=== PATIENT | female | born 1995 | race Caucasian/White ===

== ENCOUNTER → 2016-12-23 | Outpatient (CLI) | payer BC ==
--- NOTE | 2016-12-23 09:48 | US ---
Ultrasound of the Abdomen Limited History: R 10.11, are 11.0, R 53.83, right upper quadrant Abdominal pain. Nausea, fatigue. Comparison: CT July 2016. Findings: Gallbladder: No shadowing calculi, wall thickening, or pericholecystic fluid. Common bile duct is 5.4 mm in diameter which is borderline normal.. Liver: Homogeneous in echogenicity without definite focal lesions and measures 17 cm in length. Renal: Right kidney measures 10.4 x 4.2 x 4 cm without hydronephrosis. Pancreas: Homogeneous without peripancreatic fluid. Aorta: Visualized upper abdominal aorta demonstrates no aneurysm. Impression: 1. No cholelithiasis or biliary ductal dilation. 2. Borderline common bile duct at 5.4 mm. Please correlate with bilirubin. 3. No peripancreatic fluid, ascites, or hepatic lesions.
== END ==
LOC: FIMAGING 08:48
PROVIDERS: ATTEND Family Medicine
DX: R10.11 Right upper quadrant pain (principal); R11.0 Nausea; R53.83 Other fatigue

== ENCOUNTER 2017-01-26 23:21 | Emergency (ER) | payer BC ==
[2017-01-26 23:42] VITALS: TEMP 97.9
--- NOTE | 2017-01-27 00:08 | EDPHY ---
H & P Smoking Status: Light smoker Time Seen by Provider: 01/26/17 23:51 HPI/ROS: CHIEF COMPLAINT: withdrawal, anxiety HISTORY OF PRESENT ILLNESS: 21-year-old female presents to the emergency department by private vehicle with boyfriend and mother feeling extremely anxious. The patient has a history of heroin abuse. She has been sober from heroin since May of 2016. She has been using Subutex since May of 2016. She wants to get off of the Subutex. She has been detoxing in a program in [place] over the last 1 week. She got down to 2 mg. Her last dose was yesterday. She states today she felt extremely anxious. She tried taking her Xanax without relief. She denies pain in her chest. She denies difficulty breathing. No vomiting or diarrhea. No headache. No neck or back pain. No reported trauma. REVIEW OF SYSTEMS: Constitutional: No fever, no chills. Eyes: No double or blurry vision. ENT: No sore throat. Respiratory: No cough, no shortness of breath. Cardiac: No chest pain. Gastrointestinal: No abdominal pain, vomiting or diarrhea. Genitourinary: No dysuria. Musculoskeletal: No neck or back pain. Skin: No rashes. Neurological: No headache. (Jessie Bryan) Past Medical/Surgical History: Substance abuse (Jessie Bryan) Social History: Single (Jessie Bryan) Physical Exam: General Appearance: Alert, anxious, tremulous. Eyes: Pupils equal and round. Extraocular motions are all intact. ENT: Mouth: Mucous membranes dry. Respiratory: No wheezing, rhonchi, or rales, lungs are clear to auscultation. Cardiovascular: Regular rate and rhythm. Gastrointestinal: Abdomen is soft and nontender, no masses, no rebound or guarding, bowel sounds normal. Neurological: Alert and oriented x 3, cranial nerves II through XII grossly intact Skin: Warm and dry, no rashes. Musculoskeletal: Nontender to palpate along the cervical, thoracic or lumbar spine. Neck is supple. Extremities: Full range of motion and no peripheral edema. Psychiatric: Patient is oriented X 3, there is no agitation. (Jessie Bryan) Constitutional: Initial Vital Signs Temperature (C) 36.6 C 01/26/17 23:41 Heart Rate 93 01/26/17 23:41 Respiratory Rate 20 01/26/17 23:41 Blood Pressure 121/80 H 01/26/17 23:41 O2 Sat (%) 93 01/26/17 23:41 O2 Delivery Mode Room Air Allergies/Adverse Reactions: No Known Allergies Allergy (Verified 01/26/17 23:42) Home Medications: Medication Instructions Recorded Vivitrol 11/04/14 GABAPENTIN 12/30/14 Ondansetron HCl [Zofran] 4 mg PO Q4-6PRN PRN #10 tablet 02/01/16 Ondansetron Odt [Zofran Odt 4 mg 4 mg PO Q4 PRN #6 tab 07/22/16 (*)] Diazepam [Valium] 5 mg PO TIDPRN PRN #7 tab 01/27/17 Medical Decision Making ED Course/Re-evaluation: 21-year-old female presents to the emergency department stating that she is detoxing from Subutex. The patient is not suicidal homicidal. The patient feels extremely anxious. She is tremulous. I offered Ativan as well as IV normal saline although the patient initially declined. She is currently talking with her boyfriend and mother about taking this medication. She states "it is going to do anything." Patient refused the Ativan. She is requesting Valium. She states "I have been reading about Valium all day." Patient denies suicidal homicidal ideation. Her vital signs have remained stable throughout her stay in the emergency department. Heart rate is 70, 98% on room air, blood pressure 120/83. She declined an IV. She is not vomiting. She can't drink water. The patient was given 5 mg of Valium p. o. and a prescription to fill for more if needed. I also gave her information regarding the addiction recovery Center. Her mother and boyfriend were at bedside. (Jessie Bryan) Differential Diagnosis: Including but not limited to anxiety, acute withdrawal, electrolyte abnormality , intoxication (Jessei Bryan) Other Provider: PHYSICIAN DOCUMENTATION: The patient was evaluated and managed by the Physician Sight Effects Specialist. My co- signature indicates that I have reviewed this chart and I agree with the findings and plan of care as documented. I am the secondary supervising physician. (Anastasia Glover) - Data Points Medications Given: Discontinued Medications Diazepam (Valium) 5 mg PO EDNOW ONE Stop: 01/27/17 00:31 Last Admin: 01/27/17 00:36 Dose: 5 mg Departure - Departure Disposition: Home, Routine, Self-Care Clinical Impression: Substance abuse, Withdrawal complaint Condition: Good Instructions: Anxiety (ED) Additional Instructions: Valium as needed for symptoms of withdrawal. Referrals: Clover Wray MD [Primary Care Provider] - 1 day without fail Prescriptions: Diazepam [Valium] 5 mg PO TIDPRN PRN #7 tab PRN Reason: Anxiety
[2017-01-27] MEDS ORDERED: DIAZEPAM 5 MG TAB PO ONE (00:30)
[2017-01-27 00:42] VITALS: BP 120/83; PULSE 85; RESP 18; O2SAT 97
== END 2017-01-27 00:41 | disposition home or self-care (01) ==
DX: F19.239 Other psychoactive substance dependence with withdrawal, unspecified (principal)

== ENCOUNTER 2017-02-01 15:18 | Emergency (ER) | payer BC ==
[2017-02-01 15:31] VITALS: BP 118/85; PULSE 68; RESP 18; TEMP 97.7; O2SAT 98
[2017-02-01] MEDS ORDERED: NS 1,000 ML IV ONE (15:46)
--- NOTE | 2017-02-01 15:50 | EDPHY ---
H & P Time Seen by Provider: 02/01/17 15:47 HPI/ROS: HPI: 21-year-old female presents to emergency department with chief concern dehydration, vomiting, in need of prescription refill. Reports last dose of naloxone 1 week ago. In order to help with withdrawal, Dr. Jones prescribed clonazepam for her. She states she has run out of this medication and is seeking more. Denies fever, chills, headache, dizziness, seizures, abdominal pain. Reports intermittent nausea and vomiting over the past week. ROS:10 point review of systems is negative other than as stated in HPI Smoking Status: Light smoker Physical Exam: Vital signs stable General: Awake, alert, calm, cooperative. No acute distress. Head: Normalocephalic. Atraumatic. EENT: PERRLA. EOMI. No pallor or injection. Anicteric. Neck: Supple, nontender. No lymphadenopathy. Full range of motion. No meningismus. Respiratory: Breathing unlabored. Breath sounds equal bilaterally and clear to auscultation. No adventitious sounds. CV: Chest nontender, atraumatic. Heart rate regular. No murmur, distal pulses 2+ bilaterally. Brisk cap refill all extremities. GI: Abdomen soft, nontender. Bowel sounds normoactive and positive x4 quadrants. Neuro: Alert. Oriented x 3. Speech clear. Nonfocal cranial nerves throughout. Sensation intact all extremities. Skin: Skin warm, dry, intact. Moist mucous membranes. No rashes, abrasions, or lacerations. Skin turgor normal. Extremities: Full range of motion in all 4 extremities. Strength 5+ all extremities. Constitutional: Initial Vital Signs Temperature (C) 36.5 C 02/01/17 15:28 Heart Rate 68 02/01/17 15:28 Respiratory Rate 18 02/01/17 15:28 Blood Pressure 118/85 H 02/01/17 15:28 O2 Sat (%) 98 02/01/17 15:28 O2 Delivery Mode Room Air Allergies/Adverse Reactions: naloxone Allergy (Mild, Verified 02/01/17 15:31) n/v Home Medications: Medication Instructions Recorded Vivitrol 11/04/14 Scopolamine [Transderm-Scop] 1 each TD 02/01/17 clonIDINE [Catapres (*)] 0.1 mg PO 02/01/17 clonazePAM [klonoPIN (*)] 1 mg PO 02/01/17 Medical Decision Making ED Course/Re-evaluation: 21-year-old female with stable vital signs presents to ED with chief concern dehydration, vomiting, seeking prescription refill. Last dose of naloxone was 1 week ago. In order to help with withdrawal, Dr. Jones prescribed clonazepam. Patient states she has run out of this and is concerned for possible withdrawal seizures. PDMP search reveals that patient had #60, 1 mg clonazepam filled on 01/27 as well as #7 Valium filled on 01/27, both 5 days ago. I have declined to refill her benzos and I have recommended the arc. She declines the arc. While vital signs are stable, mucous membranes are moist, and skin turgor is normal, patient reports nausea and vomiting related to the withdrawal. I offered her 1 L normal saline and Zofran. Ultimately, she decides to leave the emergency department prior to administration of the normal saline and Zofran. This case was discussed with my colleague Dr. Peewee Esquivel. Differential Diagnosis: Differential diagnosis includes but is not limited to withdrawal, dehydration, drug-seeking Departure - Departure Disposition: Home, Routine, Self-Care Clinical Impression: Nausea & vomiting, Opiate withdrawal Condition: Good Instructions: Opioid Withdrawal (ED) Additional Instructions: Plan: Follow up with primary care Dr. Clover Wray tomorrow for recheck without fail --When you call to schedule appointment, please let the office know you are an "ER follow up" appointment" For worsening symptoms may return for IV fluids or nausea medicine, these were offered to you by you have D declined and decided to leave Your vital signs are entirely stable including a heart rate of 68, blood pressure 118/85 Referrals: Clover Wray MD [Primary Care Provider] - As per Instructions
== END 2017-02-01 15:55 | disposition home or self-care (01) ==
DX: R11.2 Nausea with vomiting, unspecified (principal); F11.23 Opioid dependence with withdrawal; F17.200 Nicotine dependence, unspecified, uncomplicated

== ENCOUNTER → 2017-03-17 | Outpatient (CLI) | payer BC | LOC: FIMAGING 08:51 | DX: R63.4 Abnormal weight loss (principal); R11.2 Nausea with vomiting, unspecified | CPT/HCPCS: 78264; A9541 ==

== ENCOUNTER 2017-03-28 19:21 | Emergency (ER) | payer BC ==
[2017-03-28 19:25] VITALS: TEMP 97.5
[2017-03-28] MEDS ORDERED: ONDANSETRON 4 MG/2 ML VIAL ONE (19:34)
[2017-03-28] MEDS ORDERED: ONDANSETRON 4 MG/2 ML VIAL IVP ONE ×2 (19:47→21:47)
[2017-03-28] MEDS ORDERED: NS 1,000 ML IV ONE (19:50)
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
[2017-03-28 20:54] VITALS: RESP 16
[2017-03-28 22:56] VITALS: BP 125/79; PULSE 99; O2SAT 98
== END 2017-03-28 22:30 | disposition home or self-care (01) ==
DX: F41.9 Anxiety disorder, unspecified (principal); F19.10 Other psychoactive substance abuse, uncomplicated; F17.200 Nicotine dependence, unspecified, uncomplicated
CPT/HCPCS: 96374; J2405

== ENCOUNTER 2017-04-21 16:33 | Emergency (ER) | payer BC ==
[2017-04-21 19:55] VITALS: BP 130/87; PULSE 86; RESP 20; O2SAT 96
== END 2017-04-21 17:15 | disposition left against medical advice (07) ==
DX: Z53.21 Procedure and treatment not carried out due to patient leaving prior to being seen by health care provider (principal)

== ENCOUNTER 2017-05-07 18:39 | Inpatient (IN) | payer BC ==
--- NOTE | 2017-05-07 18:54 | EDPHY ---
H & P Smoking Status: Light smoker Time Seen by Provider: 05/07/17 18:41 HPI/ROS: CHIEF COMPLAINT: Anxiety, suicidal ideation HISTORY OF PRESENT ILLNESS: This is a 22-year-old female brought in by a police for suicidal ideation. [place] [employer] states boyfriend had called with the concern that she had stated she wanted to kill herself, please also reports that wall she was in their custody she stated she wanted to just take a walk and take some pills and that she did have anything to live for. Patient states her best friend committed suicide 3-4 days ago and she has not had time to grieve she does not report feeling suicidal " I just do not have any support system to help me agrees, I do not feel like hurting myself, I have my sister's wedding to go to in July" denies any ingestion, or alcohol use REVIEW OF SYSTEMS: Constitutional: No fever, no chills. Fatigue Eyes: No discharge. Blurred vision ENT: No sore throat. Cardiovascular: No chest pain, no palpitations. Respiratory: No cough, no shortness of breath. Gastrointestinal: No abdominal pain, no vomiting. Genitourinary: No hematuria. Musculoskeletal: No back pain. Skin: No rashes. Neurological: No headache. (Shelli Sweet) Physical Exam: General Appearance: Alert, crying Eyes: Pupils equal and round no pallor or injection. ENT, Mouth: Mucous membranes moist. Respiratory: There are no retractions, lungs are clear to auscultation. Cardiovascular: Regular rate and rhythm. Gastrointestinal: Abdomen is soft and nontender, no masses, bowel sounds normal. Neurological: No focal deficits. Answering questions appropriately Skin: Warm and dry, no rashes. Musculoskeletal: Neck is supple nontender. Extremities: symmetrical, full range of motion. Psychiatric: Patient is oriented X 3, emotional crying (Shelli Sweet) Constitutional: Initial Vital Signs Temperature (C) 37 C 05/07/17 18:45 Heart Rate 98 05/07/17 18:45 Respiratory Rate 22 H 05/07/17 18:45 Blood Pressure 128/82 H 05/07/17 18:45 O2 Sat (%) 98 05/07/17 18:45 O2 Delivery Mode Room Air Allergies/Adverse Reactions: naloxone Allergy (Mild, Verified 05/07/17 18:42) n/v Home Medications: Medication Instructions Recorded clonazePAM [klonoPIN (*)] 1 mg PO 02/01/17 Ambien 04/21/17 Belsomra 04/21/17 Bcp 05/07/17 Minipress 05/07/17 Prozac 10 MG (*) 05/07/17 Medical Decision Making ED Course/Re-evaluation: Discussed ED plan of care: CBC, BMP, UA, urine drug screen,, psych evaluation 2030: Patient medically cleared waiting for psych evaluation. 2100: The discussed patient treatment plan with [facility], re-evaluating patient to see if patient needs to be admitted for psychiatric care or can go to the [facility] with resources 2130: Patient complaining of feeling anxiety and nausea. Meds ordered will re- evaluate 2340: [facility] has evaluated patient, waiting for placement 0130: Patient admitted to [address] [place] [address]. Stable not in any distress resting comfortably (Shelli Sweet) Differential Diagnosis: Other differential diagnosis considered but not limited to suicidal ideation, mike, and psychosis (Shelli Sweet) Other Provider: This patient was evaluated and managed by the nurse practitioner. I have reviewed the chart and agree with the findings and plan of care as documented. ( Radha Shannon) - Data Points Laboratory Results: Laboratory Results 05/07/17 19:43 05/07/17 19:43 05/07/17 05/07/17 05/07/17 19:43 19:43 19:43 WBC 7.23 10^3/uL 10^3/uL (3.80-9.50) RBC 4.88 10^6/uL 10^6/uL (4.18-5.33) Hgb 14.7 g/dL g/dL (12.6-16.3) Hct 42.7 % % (38.0-47.0) MCV 87.5 fL fL (81.5-99.8) MCH 30.1 pg pg (27.9-34.1) MCHC 34.4 g/dL g/dL (32.4-36.7) RDW 12.7 % % (11.5-15.2) Plt Count 251 10^3/uL 10^3/uL (150-400) MPV 9.8 fL fL (8.7-11.7) Neut % (Auto) 44.6 % % (39.3-74.2) Lymph % (Auto) 44.5 % % (15.0-45.0) Pleasants % (Auto) 7.1 % % (4.5-13.0) Eos % (Auto) 2.5 % % (0.6-7.6) Baso % (Auto) 1.0 % % (0.3-1.7) Nucleat RBC Rel Count 0.0 % % (0.0-0.2) Absolute Neuts (auto) 3.23 10^3/uL 10^3/uL (1.70-6.50) Absolute Lymphs (auto) 3.22 10^3/uL H 10^3/uL (1.00-3.00) Absolute Monos (auto) 0.51 10^3/uL 10^3/uL (0.30-0.80) Absolute Eos (auto) 0.18 10^3/uL 10^3/uL (0.03-0.40) Absolute Basos (auto) 0.07 10^3/uL 10^3/uL (0.02-0.10) Absolute Nucleated RBC 0.00 10^3/uL 10^3/uL (0-0.01) Immature Gran % 0.3 % % (0.0-1.1) Immature Gran # 0.02 10^3/uL 10^3/uL (0.00-0.10) Sodium 142 mEq/L mEq/L (134-144) Potassium 4.1 mEq/L mEq/L (3.5-5.2) Chloride 107 mEq/L mEq/L (97-110) Carbon Dioxide 21 mEq/l L mEq/l (22-31) Anion Gap 14 mEq/L mEq/L (8-16) BUN 8 mg/dL mg/dL (7-23) Creatinine 0.8 mg/dL mg/dL (0.6-1.0) Estimated GFR > 60 Glucose 74 mg/dL mg/dL (70-100) Calcium 9.1 mg/dL mg/dL (8.5-10.4) Beta HCG, Qual NEGATIVE Salicylates < 1.0 mg/dL L mg/dL (2.0-20.0) Urine Opiates Screen Urine Barbiturates Ur Phencyclidine Scrn Ur Amphetamine Screen U Benzodiazepines Scrn Urine Cocaine Screen U Marijuana (THC) Screen Ethyl Alcohol 62 mg/dL H mg/dL (0-10) 05/07/17 18:58 WBC RBC Hgb Hct MCV MCH MCHC RDW Plt Count MPV Neut % (Auto) Lymph % (Auto) Pleasants % (Auto) Eos % (Auto) Baso % (Auto) Nucleat RBC Rel Count Absolute Neuts (auto) Absolute Lymphs (auto) Absolute Monos (auto) Absolute Eos (auto) Absolute Basos (auto) Absolute Nucleated RBC Immature Gran % Immature Gran # Sodium Potassium Chloride Carbon Dioxide Anion Gap BUN Creatinine Estimated GFR Glucose Calcium Beta HCG, Qual Salicylates Urine Opiates Screen NON-NEGATIVE H (NEGATIVE) Urine Barbiturates NEGATIVE (NEGATIVE) Ur Phencyclidine Scrn NEGATIVE (NEGATIVE) Ur Amphetamine Screen NEGATIVE (NEGATIVE) U Benzodiazepines Scrn NON-NEGATIVE H (NEGATIVE) Urine Cocaine Screen NON-NEGATIVE H (NEGATIVE) U Marijuana (THC) Screen NON-NEGATIVE H (NEGATIVE) Ethyl Alcohol Medications Given: Discontinued Medications Clonazepam (Klonopin) 1 mg PO EDNOW ONE Stop: 05/07/17 19:48 Last Admin: 05/07/17 19:57 Dose: 1 mg Lorazepam (Ativan) 1 mg PO EDNOW ONE Stop: 05/07/17 22:00 Last Admin: 05/07/17 22:03 Dose: 1 mg Miscellaneous Medication (Non-Formulary) 0 ea PO EDNOW ONE Stop: 05/07/17 23:46 Last Admin: 05/08/17 00:01 Dose: 15 mg Nicotine (Nicoderm Cq) 21 mg TD EDNOW ONE Stop: 05/07/17 23:46 Last Admin: 05/08/17 00:02 Dose: 21 mg Ondansetron HCl (Zofran Odt) 4 mg PO EDNOW ONE Stop: 05/07/17 21:37 Last Admin: 05/07/17 21:41 Dose: Not Given Ondansetron HCl (Zofran Odt) 0 mg PO EDNOW ONE Stop: 05/07/17 23:46 Last Admin: 05/08/17 00:00 Dose: 8 mg Prazosin HCl (Minipress) 1 mg PO EDNOW ONE Stop: 05/07/17 23:46 Last Admin: 05/08/17 00:00 Dose: 1 mg Zolpidem Tartrate (Ambien) 0 mg PO EDNOW ONE Stop: 05/07/17 23:46 Last Admin: 05/07/17 23:59 Dose: 10 mg Departure - Departure Disposition: Other Psych, Not Nell Clinical Impression: Suicidal ideation Condition: Good Referrals: Clover Wray MD [Primary Care Provider] - As per Instructions
[2017-05-07] MEDS ORDERED: clonazePAM 1 MG TAB PO ONE (19:47)
[2017-05-07 19:52] LABS: % IMMATURE GRANULYOCYTES 0.3 % (0.0-1.1); ABSOLUTE IMMATURE GRANULOCYTES 0.02 10^3/uL (0.00-0.10); ADD DIFF? NO; ADD MORPH? NO; ADD SCAN? NO; ATYPICAL LYMPHOCYTE FLAG 10 (0-99); FRAGMENT RBC FLAG 0 (0-99); HEMATOCRIT 42.7 % (38.0-47.0); HEMOGLOBIN 14.7 g/dL (12.6-16.3); LEFT SHIFT FLG 0 (0-99); LIPEMIA HEMOLYSIS FLAG 90 (0-99); MEAN CELL HEMOGLOBIN 30.1 pg (27.9-34.1); MEAN CELL HEMOGLOBIN CONCENTR. 34.4 g/dL (32.4-36.7); MEAN CELL VOLUME 87.5 fL (81.5-99.8); MEAN PLATELET VOLUME 9.8 fL (8.7-11.7); PLATELET CLUMPS FLAG 0 (0-99); PLATELET COUNT 251 10^3/uL (150-400); RED BLOOD CELL COUNT 4.88 10^6/uL (4.18-5.33); RED CELL DISTRIBUTION WIDTH 12.7 % (11.5-15.2)
[2017-05-07 20:06] LABS: ANION GAP 14 mEq/L (8-16); CALCIUM 9.1 mg/dL (8.5-10.4); CARBON DIOXIDE 21 mEq/l (22-31); CHLORIDE 107 mEq/L (97-110); CREATININE 0.8 mg/dL (0.6-1.0); ETHANOL SERUM 62 mg/dL (0-10); GLOMERULAR FILTRATION RATE > 60; GLUCOSE 74 mg/dL (70-100); POTASSIUM 4.1 mEq/L (3.5-5.2); SALICYLATE < 1.0 mg/dL (2.0-20.0); SODIUM 142 mEq/L (134-144)
[2017-05-07] MEDS ORDERED: ACETAMINOPHEN 325 MG TAB ONE (20:58)
[2017-05-07] MEDS ORDERED: ONDANSETRON DISINTEGRATING 4 MG TAB PO ONE ×2 (21:36→23:44)
[2017-05-07] MEDS ORDERED: LORazepam 1 MG TAB PO ONE (21:59)
[2017-05-07] MEDS ORDERED: NICOTINE 21 MG/24 HR PATCH TD ONE ×2 (23:35→23:45)
[2017-05-07] MEDS ORDERED: ONDANSETRON DISINTEGRATING 4 MG TAB ONE (23:42)
[2017-05-07] MEDS ORDERED: ZOLPIDEM TARTRATE 10 MG TAB PO ONE (23:45)
[2017-05-07] MEDS ORDERED: SUVOREXANT 15 MG PO (23:45)
[2017-05-07] MEDS ORDERED: ONDANSETRON 8 MG TABLET PO ONE (23:45)
[2017-05-07] MEDS ORDERED: PRAZOSIN HCL 1 MG CAP PO ONE (23:45)
[2017-05-08] MEDS ORDERED: ACETAMINOPHEN 325 MG TAB PO PRN (02:45)
[2017-05-08] MEDS ORDERED: NICOTINE POLACRILEX 2 MG GUM B PRN (02:45)
[2017-05-08] MEDS ORDERED: MAG HYDROX/AL HYDROX/SIMETH 30 ML UDCUP PO PRN (02:45)
[2017-05-08] MEDS ORDERED: MAGNESIUM HYDROXIDE 30 ML UDCUP PO PRN (02:45)
[2017-05-08] MEDS ORDERED: OLANZapine DISINTEGR 10 MG TAB PO PRN (02:45)
[2017-05-08] MEDS: LORazepam 0.5 MG TAB PO PRN ×4 (03:28→20:36)
[2017-05-08] MEDS ORDERED: ONDANSETRON DISINTEGRATING 4 MG TAB PO PRN (08:07)
[2017-05-08] MEDS: NICOTINE 21 MG/24 HR PATCH TD SCH (08:56)
[2017-05-08] MEDS ORDERED: ONDANSETRON DISINTEGRATING 4 MG TAB PO ONE (09:15)
--- NOTE | 2017-05-08 09:17 | GCON ---
[f rep st] CONSULTATION DATE OF CONSULTATION: 05/08/2017 REFERRING PHYSICIAN: Sarita Siddiqui MD REASON FOR CONSULTATION: Medical management. HISTORY OF PRESENT ILLNESS: The patient is a 22-year-old female with a history of anxiety and polys ubstance abuse, brought in after her boyfriend called with concerns of patient having suicidal ideat ions. The patient has had these thoughts in the past. Five days ago, her friend committed suicide. At this time, she denies any suicide or homicide ideations. She does feel more anxious. She norm ally takes clonazepam t.i.d. but for the past 2 weeks has been taking 1 mg 6 times daily. Feels her heart racing. Denies vomiting and diarrhea. Has chronic nausea, which is relieved with Zofran. N o fever, chills, or sweats. No dysuria. REVIEW OF SYSTEMS: I completed a 10-point review of systems, negative except as noted in HPI. PAST MEDICAL HISTORY: Anxiety, polysubstance abuse, history of prior suicidal ideation. PAST SURGICAL HISTORY: None. FAMILY HISTORY: No cancer or CAD. SOCIAL HISTORY: Her parents live here in [place]. She is living with her boyfriend in [place]. She smokes marijuana regularly several times a day, a pack of cigarettes a day, 2-3 drinks 4 times a week. ALLERGIES: Naloxone. MEDICATIONS: Ambien 10 q.h.s., Belsomra 5 mg p.o. daily, prazosin 1 mg q.h.s., Zofran 8 mg as neede d, control, Prozac 10, and clonazepam 1 mg t.i.d. but has been taking it 6 times a day. PHYSICAL EXAM: VITAL SIGNS: Temperature 36.6, blood pressure 129/86, heart rates 80-90, respiratio ns 18, 98% on room air. GENERAL: The patient is lying in bed, awake from sleep but no acute distre ss. HEENT: PERRLA. EOMI. Oropharynx clear. CV: Regular rate and rhythm. No murmurs, gallops, or rubs. LUNGS: Clear to auscultation bilaterally. ABDOMEN: Mild left lower quadrant tenderness. No rebound, no guarding. Positive bowel sounds throughout. : No suprapubic tenderness. MUSCU LOSKELETAL: 5/5 upper and lower extremity strength. NEURO: 2-12 intact. PSYCH: Alert and orient ed x3. Anxious. LABORATORY DATA: WBC 7.2, hemoglobin 14, hematocrit 42, platelets 251. Sodium 142, potassium 4.1, chloride 107, carbon dioxide 21, creatinine 0.8, glucose 74, calcium 9.1. Beta-HCG negative. Urine tox positive for opioid, benzos, cocaine, and marijuana. ASSESSMENT AND PLAN: 1. Concern for suicidal ideation: This appears to be situational given her best friend's recent masterson icide. She currently denies any suicidal or homicidal ideations. She was admitted to [facility], treatment per that team. 2. Polysubstance abuse: Patient denies other drugs besides marijuana. However, she is positive fo r cocaine as well. She was counseled on cessation. 3. Alcohol abuse. Again, counseled on cessation. 4. Chronic nausea and vomiting: I did student counsellor patient that marijuana in excessive use is likely co ntributing. P.r.n. [employer]. 5. Tobacco abuse. Patch and Nicorette gum as needed. 6. Diet: Regular. 7. DVT prophylaxis: Low risk. Ambulatory. Thank you for this consultation. Please call with any questions. /[id number]/MODL
[2017-05-08] MEDS: FLUoxetine 20 MG CAP PO SCH (15:46)
[2017-05-08] MEDS: PRAZOSIN HCL 1 MG CAP PO SCH ×2 (15:46→21:50)
[2017-05-08] MEDS: NORETHINDRONE E ESTRADIOL IRON PO SCH ×2 (16:19→20:55)
[2017-05-08] MEDS: clonazePAM 1 MG TAB PO SCH ×2 (16:21→21:50)
[2017-05-08] MEDS ORDERED: BACITRACIN OINTMENT 1 PACKET TP ONE (19:21)
[2017-05-08] MEDS: ZOLPIDEM TARTRATE 5 MG TAB PO SCH (21:50)
--- NOTE | 2017-05-09 07:07 | SOAPPROG ---
SOAP Progress Note Assessment/Plan: Assessment: Plan: 05/09/17 DAY ' UPDATE/EXAM: Objective: Vital Signs Temp Pulse Resp BP Pulse Ox 36.4 C 75 14 105/56 L 97 05/09/17 06:39 05/09/17 06:39 05/09/17 06:39 05/09/17 06:39 05/09/17 06:39 ICD10 Worksheet Patient Problems: Problems Problem Status Onset Suicidal ideation Acute
[2017-05-09] MEDS: FLUoxetine 20 MG CAP PO SCH (08:09)
[2017-05-09] MEDS: NORETHINDRONE E ESTRADIOL IRON PO SCH ×3 (08:09→22:02)
[2017-05-09] MEDS: clonazePAM 1 MG TAB PO SCH ×3 (08:10→22:01)
[2017-05-09] MEDS: PRAZOSIN HCL 1 MG CAP PO SCH ×2 (08:10→22:01)
[2017-05-09] MEDS: LORazepam 0.5 MG TAB PO PRN ×3 (08:10→20:23)
[2017-05-09] MEDS: NICOTINE 21 MG/24 HR PATCH TD SCH (08:15)
[2017-05-09] MEDS: ONDANSETRON DISINTEGRATING 4 MG TAB PO PRN (08:15)
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
--- NOTE | 2017-05-09 13:51 | SOAPPROG ---
ERIK Progress Note Assessment/Plan: Assessment: Plan: 05/09/17 10:30 DAY 30' UPDATE/EXAM: Nursing reort pt slept 2 hours but is less regressed interactively this AM, c/w cares and meds, socially more appropriate/ on direct exam pt calm, cooperative, conversant; more accepting of extending inpt stay for restabilization, work-up, DC planning; gave more detain in disclosing nd expanding data base; knows I will Add her own supply of Belsomora 15 mg hs to ordered regimen; denies SI and moves easily into grief work focus about suicided friend ASSESSMENT/PLAN: early phase alliance and descriptive improvement/ hs meds added as above; CP to p/u grief focus as d/w Nursing Objective: Vital Signs Temp Pulse Resp BP Pulse Ox 36.4 C 75 14 105/56 L 97 05/09/17 06:39 05/09/17 06:39 05/09/17 06:39 05/09/17 06:39 05/09/17 06:39 ICD10 Worksheet Patient Problems: Problems Problem Status Onset Suicidal ideation Acute
[2017-05-09] MEDS ORDERED: SUVOREXANT 15 MG PO SCH (21:00)
[2017-05-09] MEDS: ZOLPIDEM TARTRATE 5 MG TAB PO SCH (22:01)
[2017-05-09] MEDS: Suvorexant [Belsomra] 15 MG PO SCH (22:01)
--- NOTE | 2017-05-10 06:32 | SOAPPROG ---
SOAP Progress Note Assessment/Plan: Assessment: Plan: 05/09/17 10:30 DAY 2 30' UPDATE/EXAM: Nursing report pt slept 2 hours but is less regressed interactively this AM, c/w cares and meds, socially more appropriate/ on direct exam pt calm, cooperative, conversant; more accepting of extending inpt stay for restabilization, work-up, DC planning; gave more detail in disclosing and expanding data base; knows I will add her own supply of Belsomora 15 mg hs to ordered regimen; denies SI and moves easily into grief work focus about suicided friend ASSESSMENT/PLAN: early phase alliance and descriptive improvement/ hs meds added as above; CP to p/u grief focus as d/w Nursing Objective: Vital Signs Temp Pulse Resp BP Pulse Ox 36.4 C 75 14 105/56 L 97 05/09/17 06:39 05/09/17 06:39 05/09/17 06:39 05/09/17 06:39 05/09/17 06:39 ICD10 Worksheet Patient Problems: Problems Problem Status Onset Suicidal ideation Acute
[2017-05-10] MEDS: clonazePAM 1 MG TAB PO SCH ×3 (08:05→22:12)
[2017-05-10] MEDS: NICOTINE 21 MG/24 HR PATCH TD SCH (08:05)
[2017-05-10] MEDS: FLUoxetine 20 MG CAP PO SCH (08:05)
[2017-05-10] MEDS: PRAZOSIN HCL 1 MG CAP PO SCH ×2 (08:06→22:39)
[2017-05-10] MEDS: ONDANSETRON DISINTEGRATING 4 MG TAB PO PRN ×2 (10:12→17:22)
[2017-05-10] MEDS: LORazepam 0.5 MG TAB PO PRN ×2 (12:18→20:05)
--- NOTE | 2017-05-10 13:26 | SOAPPROG ---
SOAP Progress Note Assessment/Plan: Assessment: Plan: 05/09/17 10:30 DAY 2 30' UPDATE/EXAM: Nursing report pt slept 2 hours but is less regressed interactively this AM, c/w cares and meds, socially more appropriate/ on direct exam pt calm, cooperative, conversant; more accepting of extending inpt stay for restabilization, work-up, DC planning; gave more detail in disclosing and expanding data base; knows I will add her own supply of Belsomora 15 mg hs to ordered regimen; denies SI and moves easily into grief work focus about suicided friend ASSESSMENT/PLAN: early phase alliance and descriptive improvement/ hs meds added as above; CP to p/u grief focus as d/w Nursing 05/10/17 08:30 UPDATE/EXAM: Nursing reports improved sleep / addition of Belasorma 15 mg hs and general improving trend as pt adheres to Care Plan accountability/ on direct pt able to focus on need for grief ffocus as well as discloses focus on trauma history is new and being developed with her psychotherapist in the weeks prior to cirisis of friend's leading to this admission; also able to focus on need to add sobriety treatment in structured fashion to her psychiatric plan including professional and self-help services; denies current SI and is less dysphoric ASSESSMENT/PLAN: lessening syndromal depression as pt addresses issues more directly/ no current change in meds; cC/B from psychiatrist in community pending ; early DC planning with particular focus on sobriety planning Objective: Vital Signs Temp Pulse Resp BP Pulse Ox 36.6 C 80 14 96/52 L 98 05/10/17 06:00 05/10/17 06:00 05/10/17 06:00 05/10/17 06:00 05/10/17 06:00 ICD10 Worksheet Patient Problems: Problems Problem Status Onset Suicidal ideation Acute
[2017-05-10] MEDS: NORETHINDRONE E ESTRADIOL IRON PO SCH (21:18)
[2017-05-10] MEDS: Suvorexant [Belsomra] 15 MG PO SCH (22:11)
[2017-05-10] MEDS: ZOLPIDEM TARTRATE 5 MG TAB PO SCH (22:39)
--- NOTE | 2017-05-11 06:46 | SOAPPROG ---
SOAP Progress Note Assessment/Plan: Assessment: Plan: 05/09/17 10:30 DAY UPDATE/EXAM: Nursing report pt slept 2 hours but is less regressed interactively this AM, c/w cares and meds, socially more appropriate/ on direct exam pt calm, cooperative, conversant; more accepting of extending inpt stay for restabilization, work-up, DC planning; gave more detail in disclosing and expanding data base; knows I will add her own supply of Belsomora 15 mg hs to ordered regimen; denies SI and moves easily into grief work focus about suicided friend ASSESSMENT/PLAN: early phase alliance and descriptive improvement/ hs meds added as above; CP to p/u grief focus as d/w Nursing 05/10/17 08:30 DAY UPDATE/EXAM: Nursing reports improved sleep / addition of Belasorma 15 mg hs and general improving trend as pt adheres to Care Plan accountability/ on direct pt able to focus on need for grief focus as well as discloses focus on trauma history is new and being developed with her psychotherapist in the weeks prior to cirisis of friend's leading to this admission; also able to focus on need to add sobriety treatment in structured fashion to her psychiatric plan including professional and self-help services; denies current SI and is less dysphoric ASSESSMENT/PLAN: lessening syndromal depression as pt addresses issues more directly/ no current change in meds; C/B from psychiatrist in community pending ; early DC planning with particular focus on sobriety planning. 05/11/17 DAY UPDATE/EXAM: Objective: Vital Signs Temp Pulse Resp BP Pulse Ox 36.6 C 67 12 98/56 L 98 05/11/17 06:00 05/11/17 06:00 05/11/17 06:00 05/11/17 06:00 05/11/17 06:00 ICD10 Worksheet Patient Problems: Problems Problem Status Onset Suicidal ideation Acute
[2017-05-11] MEDS: FLUoxetine 20 MG CAP PO SCH (08:22)
[2017-05-11] MEDS: clonazePAM 1 MG TAB PO SCH ×3 (08:22→22:13)
[2017-05-11] MEDS: PRAZOSIN HCL 1 MG CAP PO SCH ×2 (08:22→22:13)
[2017-05-11] MEDS: NICOTINE 21 MG/24 HR PATCH TD SCH (08:22)
[2017-05-11] MEDS: ONDANSETRON DISINTEGRATING 4 MG TAB PO PRN (10:36)
[2017-05-11] MEDS: LORazepam 0.5 MG TAB PO PRN ×2 (11:57→16:30)
--- NOTE | 2017-05-11 15:41 | SOAPPROG ---
SOAP Progress Note Assessment/Plan: Assessment: Plan: 05/09/17 10:30 DAY UPDATE/EXAM: Nursing report pt slept 2 hours but is less regressed interactively this AM, c/w cares and meds, socially more appropriate/ on direct exam pt calm, cooperative, conversant; more accepting of extending inpt stay for restabilization, work-up, DC planning; gave more detail in disclosing and expanding data base; knows I will add her own supply of Belsomora 15 mg hs to ordered regimen; denies SI and moves easily into grief work focus about suicided friend ASSESSMENT/PLAN: early phase alliance and descriptive improvement/ hs meds added as above; CP to p/u grief focus as d/w Nursing 05/10/17 08:30 DAY UPDATE/EXAM: Nursing reports improved sleep / addition of Belasorma 15 mg hs and general improving trend as pt adheres to Care Plan accountability/ on direct pt able to focus on need for grief focus as well as discloses focus on trauma history is new and being developed with her psychotherapist in the weeks prior to cirisis of friend's leading to this admission; also able to focus on need to add sobriety treatment in structured fashion to her psychiatric plan including professional and self-help services; denies current SI and is less dysphoric ASSESSMENT/PLAN: lessening syndromal depression as pt addresses issues more directly/ no current change in meds; C/B from psychiatrist in community pending ; early DC planning with particular focus on sobriety planning. 05/11/17 14:30 DAY UPDATE/EXAM: Nursing reports pt selpt well, observed as less depressed and fully engaging her Care Plan including milieu and group participation/ on direct exam pt is calm, cooperative, conversant; comfortable with signing in as Voluntary status after PM telephonic discussion with me yesterday; session focussed on grief work about suicided friend, sobriety rx plan for f/u post DC; DC timing set for PM tomorrow. Pt aware of my reviewing her case with community psychiatrist with second contact with him tomorrow. ASSESSMENT/PLAN: sustaining and building on gains; productive preparation for DC therapeutically tomorrow/ no change in meds or management plan; CP d/w [place] in Rounds Objective: Vital Signs Temp Pulse Resp BP Pulse Ox 36.6 C 67 12 98/56 L 98 05/11/17 06:00 05/11/17 06:00 05/11/17 06:00 05/11/17 06:00 05/11/17 06:00 ICD10 Worksheet Patient Problems: Problems Problem Status Onset Suicidal ideation Acute
[2017-05-11] MEDS: NORETHINDRONE E ESTRADIOL IRON PO SCH (21:03)
[2017-05-11] MEDS: Suvorexant [Belsomra] 15 MG PO SCH (21:42)
[2017-05-11] MEDS: ZOLPIDEM TARTRATE 5 MG TAB PO SCH (22:13)
[2017-05-12 06:25] VITALS: BP 101/58; PULSE 71; RESP 14; TEMP 97.5; O2SAT 97
--- NOTE | 2017-05-12 06:35 | SOAPPROG ---
SOAP Progress Note Assessment/Plan: Assessment: Plan: 05/09/17 10:30 DAY UPDATE/EXAM: Nursing report pt slept 2 hours but is less regressed interactively this AM, c/w cares and meds, socially more appropriate/ on direct exam pt calm, cooperative, conversant; more accepting of extending inpt stay for restabilization, work-up, DC planning; gave more detail in disclosing and expanding data base; knows I will add her own supply of Belsomora 15 mg hs to ordered regimen; denies SI and moves easily into grief work focus about suicided friend ASSESSMENT/PLAN: early phase alliance and descriptive improvement/ hs meds added as above; CP to p/u grief focus as d/w Nursing 05/10/17 08:30 DAY UPDATE/EXAM: Nursing reports improved sleep / addition of Belasorma 15 mg hs and general improving trend as pt adheres to Care Plan accountability/ on direct pt able to focus on need for grief focus as well as discloses focus on trauma history is new and being developed with her psychotherapist in the weeks prior to cirisis of friend's leading to this admission; also able to focus on need to add sobriety treatment in structured fashion to her psychiatric plan including professional and self-help services; denies current SI and is less dysphoric ASSESSMENT/PLAN: lessening syndromal depression as pt addresses issues more directly/ no current change in meds; C/B from psychiatrist in community pending ; early DC planning with particular focus on sobriety planning. 05/11/17 14:30 DAY UPDATE/EXAM: Nursing reports pt slept well, observed as less depressed and fully engaging her Care Plan including milieu and group participation/ on direct exam pt is calm, cooperative, conversant; comfortable with signing in as Voluntary status after PM telephonic discussion with me yesterday; session focussed on grief work about suicided friend, sobriety rx plan for f/u post DC; DC timing set for PM tomorrow. Pt aware of my reviewing her case with community psychiatrist with second contact with him tomorrow. ASSESSMENT/PLAN: sustaining and building on gains; productive preparation for DC therapeutically tomorrow/ no change in meds or management plan; CP d/w [place] in Rounds 05/12/17 11:00 Discharge Note DAY ' UPDATE/EXAM: Objective: Vital Signs Temp Pulse Resp BP Pulse Ox 36.4 C 71 14 101/58 L 97 05/12/17 06:00 05/12/17 06:00 05/12/17 06:00 05/12/17 06:00 05/12/17 06:00 ICD10 Worksheet Patient Problems: Problems Problem Status Onset Suicidal ideation Acute
[2017-05-12] MEDS: PRAZOSIN HCL 1 MG CAP PO SCH (08:54)
[2017-05-12] MEDS: NICOTINE 21 MG/24 HR PATCH TD SCH (08:54)
[2017-05-12] MEDS: clonazePAM 1 MG TAB PO SCH (08:54)
[2017-05-12] MEDS: FLUoxetine 20 MG CAP PO SCH (08:54)
[2017-05-12] MEDS ORDERED: SENNOSIDES 1 TAB PO SCH (09:30)
[2017-05-12] MEDS: ONDANSETRON DISINTEGRATING 4 MG TAB PO PRN (10:53)
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
== END 2017-05-12 14:40 | disposition home or self-care (01) | DRG 882 ==
LOC: BBEH 05-08 02:50
PROVIDERS: ADMIT Psychiatry & Neurology Psychiatry; ATTEND Psychiatry & Neurology Psychiatry
DX: F43.22 Adjustment disorder with anxiety (principal); R11.2 Nausea with vomiting, unspecified; F12.90 Cannabis use, unspecified, uncomplicated; F10.10 Alcohol abuse, uncomplicated; F17.210 Nicotine dependence, cigarettes, uncomplicated
CPT/HCPCS: 80305; G0480

== ENCOUNTER 2017-06-26 11:41 | Emergency (ER) | payer BC ==
--- NOTE | 2017-06-26 13:00 | EDPHY ---
H & P Stated Complaint: hx hip dysplasia.2 wks ago hip "popped out" increasing r leg numbness Time Seen by Provider: 06/26/17 13:00 - Personal History LMP (Females 10-55): 8-14 Days Ago Current Tetanus/Diphtheria Vaccine: Yes - Medical/Surgical History Hx Asthma: No Hx Chronic Respiratory Disease: No Hx Diabetes: No Hx Cardiac Disease: No Hx Renal Disease: No Hx Cirrhosis: No Hx Alcoholism: No Hx HIV/AIDS: No Hx Splenectomy or Spleen Trauma: No Other PMH: pmh- anxiety, IVDA. Psh-tonsillectomy, R wrist. gastroperesis cyclical vomiting - Social History Smoking Status: Heavy smoker Constitutional: Initial Vital Signs Temperature (C) 36.8 C 06/26/17 11:46 Heart Rate 104 H 06/26/17 11:46 Respiratory Rate 20 06/26/17 11:46 Blood Pressure 125/81 H 06/26/17 11:46 O2 Sat (%) 94 06/26/17 11:46 O2 Delivery Mode Room Air Allergies/Adverse Reactions: naloxone Allergy (Mild, Verified 06/26/17 11:45) n/v Home Medications: Medication Instructions Recorded FLUoxetine [Prozac 20 MG (*)] 20 mg PO DAILY 05/08/17 Norethindrone-E.estradiol-Iron [Lo 1 each PO DAILY 05/08/17 Loestrin Fe 1-10 Tablet] Ondansetron HCl [Zofran] 8 mg PO Q4 PRN 05/08/17 Prazosin HCl [Minipress 1mg (*)] 1 mg PO BID 05/08/17 Zolpidem Tartrate [Ambien 10 mg] 10 mg PO HS 05/08/17 Prazosin HCl [Minipress 1mg (*)] 1 mg PO BID #0 cap 05/12/17 Zolpidem Tartrate [Ambien 5MG (*)] 10 mg PO HS #0 tab 05/12/17 clonazePAM [klonoPIN (*)] 1 mg PO TID #45 tab 05/12/17 Ondansetron Odt [Zofran Odt 4 mg 4 mg PO Q4 PRN #10 tab 06/26/17 (RX)] oxyCODONE IR [Oxycodone Ir (*)] 5 - 10 mg PO Q6 PRN #20 tab 06/26/17 Medical Decision Making ED Course/Re-evaluation: CHIEF COMPLAINT: Right hip pain HISTORY OF PRESENT ILLNESS: 22-year-old female who has known hip dysplasia. She believes it is congenital her mother has the same problem and is needing hip replacements. This patient is having recurrent hip dislocations of her lower brule hip. Orthopedic surgeon saw her a couple days ago and ordered a hip MRI for this week however the patient feels like she dislocated 1 or 2 more times and the orthopedic surgeon recommended coming to the emergency department for an MRI to see if anything needs to be done more urgently. Patient denies any trauma but was recently on vacation and walking a tremendous amount where she feels like the hip got much worse over the last 2 weeks. She can't lift her leg due to pain but not due to weakness. She denies any back pain or radiculopathy type symptomatology. REVIEW OF SYSTEMS: A 10 point review of systems was performed and is negative with the exception of the elements mentioned in the history of present illness. PHYSICAL EXAM: HR, BP, O2 Sat, RR. Temp noted General Appearance: Alert, well hydrated, appropriate, and non-toxic appearing. Head: Atraumatic without scalp tenderness or obvious injury Eyes: Pupils equal, round, reactive to light and accommodation, EOMI, no trauma , no injection. Ears: Clear bilaterally, no perforation, normal landmarks Nose: Atraumatic, no rhinorrhea, clear. Throat: There is no erythema or exudates, no lesions, normal tonsils, mucus membranes moist. Neck: Supple, 2+ carotid upstroke, nontender, no lymphadenopathy. Respiratory: No retractions, no distress, no wheezes, and no accessory muscle use. Lungs are clear to auscultation bilaterally. Cardiovascular: Regular rate and rhythm, no murmurs, rubs, or gallops. Bilateral carotid, radial, dorsalis pedis, and posterior tibial pulses intact. Good capillary refill all extremities. Gastrointestinal: Abdomen is soft, nontender, non-distended, no masses, no rebound, no guarding, no peritoneal signs. Musculoskeletal: Right hip pain on any movement whatsoever. Otherwise, Normal active ROM of all extremities, atraumatic. Neurological: Alert, appropriate, and interactive. The patient has normal DTRs and non-focal cranial nerves, motor, sensory, and cerebellar exam. Skin: No rashes, good turgor, no nodules on palpation. Past medical history: Hip dysplasia, PTSD, depression, anxiety Past surgical history: Noncontributory Family history: Bilateral hip dysplasia her mother who is in the room Social history: Employed, significant other in the room, does not abuse tobacco drugs or alcohol, not DIAGNOSTICS/PROCEDURES/CRITICAL CARE TIME: Study: MRI of the: right hip with contrast Indication: known hip dysplasia with recurrent dislocations Results: MRI scan of the body parts was obtained. The results of the study are normal. The study was read by the radiologist, . I viewed the images myself on the PACS system. DIFFERENTIAL DIAGNOSIS: Includes but is not limited to: Hip dislocation, labral tear, arthritis, osteomyelitis MEDICAL DECISION MAKING: This patient is having exquisite hip pain after she believes that her hip is dislocated several times over the last 2 weeks. Orthopedic surgeon is in agreement has evaluated her and scheduled an MRI for this week. However, today the pain was so severe that the patient called that office again and recommended she come to the emergency department for an MRI. I will perform 1 based on our request. I have given the patient pain medicine anti nausea medicine. We will do with gadolinium to make sure we visualized the labrum well. 1727: MRI results conveyed to me by Dr. Carter as no acute process. Imaging looks the same as CT from 2 years ago. The MRI will be read by a specialist on Wednesday. I have advised her to follow up with her orthopedic doctor next week for reevaluation. It is possible that this event represents a lumbar radiculopathy but I feel this is less likely. 1730: Reassessed patient. Discussed results of MRI and the plan for discharge, which they are comfortable with. I answered all of their questions. - Data Points Medications Given: Discontinued Medications Hydromorphone HCl (Dilaudid) 1 mg IVP EDNOW ONE Stop: 06/26/17 13:24 Last Admin: 06/26/17 13:53 Dose: 1 mg Hydromorphone HCl (Dilaudid) 0.5 mg IVP EDNOW ONE Stop: 06/26/17 17:00 Last Admin: 06/26/17 17:06 Dose: 0.5 mg Sodium Chloride (Ns) 1,000 mls @ 0 mls/hr IV EDNOW ONE; Wide Open PRN Reason: Protocol Stop: 06/26/17 13:24 Last Admin: 06/26/17 13:53 Dose: 1,000 mls Ketorolac Tromethamine (Toradol) 30 mg IVP EDNOW ONE Stop: 06/26/17 13:24 Last Admin: 06/26/17 13:54 Dose: 30 mg Nicotine (Nicoderm Cq) 21 mg TD EDNOW ONE Stop: 06/26/17 15:01 Last Admin: 06/26/17 15:13 Dose: 21 mg Ondansetron HCl (Zofran) 4 mg IVP EDNOW ONE Stop: 06/26/17 13:24 Last Admin: 06/26/17 13:54 Dose: 4 mg Departure - Departure Disposition: Home, Routine, Self-Care Clinical Impression: Hip pain Qualifiers: Laterality: unspecified laterality Qualified Code(s): M25.559 - Pain in unspecified hip Condition: Good Instructions: Hip Pain (ED) Additional Instructions: Follow up with your orthopedic doctor next week for reevaluation. Take Zofran as prescribed when needed for nausea. Take pain medications as prescribed. Return for any serious worsening of condition. Referrals: Clover Wray MD [Primary Care Provider] - As per Instructions Prescriptions: Ondansetron Odt [Zofran Odt 4 mg (RX)] 4 mg PO Q4 PRN #10 tab PRN Reason: Nausea/Vomiting, Use 1st oxyCODONE IR [Oxycodone Ir (*)] 5 - 10 mg PO Q6 PRN #20 tab PRN Reason: Pain, Severe
[2017-06-26] MEDS ORDERED: ONDANSETRON 4 MG/2 ML VIAL IVP ONE (13:23)
[2017-06-26] MEDS ORDERED: HYDROmorphONE/DILAUDID 1 MG/ML SYR IVP ONE ×2 (13:23→16:59)
[2017-06-26] MEDS ORDERED: NS 1,000 ML IV ONE (13:23)
[2017-06-26] MEDS ORDERED: KETOROLAC 30 MG/1 ML SDV IVP ONE (13:23)
[2017-06-26] MEDS ORDERED: NICOTINE 21 MG/24 HR PATCH TD ONE (15:00)
[2017-06-26] MEDS ORDERED: GADOBUTROL 10 ML VIAL IVP ONE (15:50)
[2017-06-26 16:43] VITALS: RESP 16
[2017-06-26 17:55] VITALS: BP 134/92; PULSE 98; TEMP 97.7; O2SAT 96
== END 2017-06-26 17:56 | disposition home or self-care (01) ==
DX: M25.551 Pain in right hip (principal); F17.200 Nicotine dependence, unspecified, uncomplicated; E86.9 Volume depletion, unspecified
CPT/HCPCS: 96374; A9585; J1170; J1885; J2405

== ENCOUNTER 2018-03-01 19:54 | Emergency (ER) | payer OTHER ==
--- NOTE | 2018-03-01 20:22 | EDPHY ---
H & P Time Seen by Provider: 03/01/18 20:20 HPI/ROS: CHIEF COMPLAINT: Abdominal pain and vomiting HISTORY OF PRESENT ILLNESS: Patient is a history of gastric paresis cyclical vomiting as well as anxiety. Discharge summary dated 06/10/2017 personally reviewed includes a history of depression and PTSD along with substance abuse including THC cocaine and heroin. Patient developed symptoms today at 930 in the morning. Right upper quadrant abdominal pain radiates to her back associated with multiple episodes of vomiting and no diarrhea. She feels hot and sweaty. She says it feels"crampy" . Does not have urinary or vaginal symptoms. States symptoms are moderate to severe now and worse if she tries to eat or drink anything. REVIEW OF SYSTEMS: Eye: no change in vision ENT: no sore throat Cardiac: no chest pain or syncope Pulmonary: no cough or SOB Abdomen: HPI Musculoskeletal: no back pain Skin: no rash Neuro: no headache Constitutional: no fever : no urinary symptoms A comprehensive 10 point review of systems is otherwise negative aside from elements mentioned in the history of present illness. PAST MEDICAL HISTORY: As in HPI Social history: Here with her boyfriend, did have recent alcohol General Appearance: Alert and conversant, cooperative. Eyes: No scleral icterus. ENT, Mouth: Dry mucous membranes Respiratory: Normal respiratory effort, breath sounds equal, lungs are clear to auscultation. Cardiovascular: Regular rate and rhythm. Gastrointestinal: Right upper quadrant tenderness, no McBurney's point tenderness or lower abdominal rebound or guarding. Neurological: Alert, face symmetric, normal motor and sensory in extremities. Skin: Warm and dry, no rashes. Musculoskeletal: No peripheral edema. Psychiatric: Mildly anxious. Emergency Department course/MDM: Haldol 2.5 and Benadryl 25 mg IV, normal saline 2 L IV. Labs to include CBC chemistry LFT lipase and test. Urinalysis. Right upper quadrant ultrasound. 2149: Re-evaluated sleeping quietly, easily awakened and says she feels better. No vomiting. 2232: Re-evaluated, feels better, wants to go home, no further vomiting or abdominal pain. Smoking Status: Light smoker Constitutional: Initial Vital Signs Temperature (C) 36.3 C 03/01/18 19:59 Heart Rate 106 H 03/01/18 19:59 Respiratory Rate 20 03/01/18 19:59 Blood Pressure 108/89 H 03/01/18 19:59 O2 Sat (%) 96 03/01/18 19:59 O2 Delivery Mode Room Air Allergies/Adverse Reactions: naloxone Allergy (Mild, Verified 06/26/17 11:45) n/v Home Medications: Medication Instructions Recorded Zolpidem Tartrate [Ambien 5MG (*)] 10 mg PO HS #0 tab 05/12/17 clonazePAM [klonoPIN (*)] 1 mg PO TID #45 tab 05/12/17 Medical Decision Making - Diagnostics Imaging Results: Imaging Impressions Abdomen Ultrasound 03/01/18 20:27 Impression: Hepatomegaly with probable hepatic steatosis. Dr. Castro discussed these findings by telephone with LAVELL TRAN at 2208 hours on 03/01/2018. Normal right upper quadrant ultrasound discussed with Dr. Cass Philippe at 10: 10 p.m.. Imaging: Discussed imaging studies w/ will call clerk Radiologist - Data Points Laboratory Results: Laboratory Results 03/01/18 20:12 03/01/18 20:12 03/01/18 03/01/18 03/01/18 20:12 20:12 20:12 WBC 11.74 10^3/uL H 10^3/uL (3.80-9.50) RBC 5.72 10^6/uL H 10^6/uL (4.18-5.33) Hgb 16.2 g/dL g/dL (12.6-16.3) Hct 46.0 % % (38.0-47.0) MCV 80.4 fL L fL (81.5-99.8) MCH 28.3 pg pg (27.9-34.1) MCHC 35.2 g/dL g/dL (32.4-36.7) RDW 13.2 % % (11.5-15.2) Plt Count 318 10^3/uL 10^3/uL (150-400) MPV 9.8 fL fL (8.7-11.7) Neut % (Auto) 86.2 % H % (39.3-74.2) Lymph % (Auto) 8.7 % L % (15.0-45.0) [place] % (Auto) 4.4 % L % (4.5-13.0) Eos % (Auto) 0.2 % L % (0.6-7.6) Baso % (Auto) 0.2 % L % (0.3-1.7) Nucleat RBC Rel Count 0.0 % % (0.0-0.2) Absolute Neuts (auto) 10.12 10^3/uL H 10^3/uL (1.70-6.50) Absolute Lymphs (auto) 1.02 10^3/uL 10^3/uL (1.00-3.00) Absolute Monos (auto) 0.52 10^3/uL 10^3/uL (0.30-0.80) Absolute Eos (auto) 0.02 10^3/uL L 10^3/uL (0.03-0.40) Absolute Basos (auto) 0.02 10^3/uL 10^3/uL (0.02-0.10) Absolute Nucleated RBC 0.00 10^3/uL 10^3/uL (0-0.01) Immature Gran % 0.3 % % (0.0-1.1) Immature Gran # 0.04 10^3/uL 10^3/uL (0.00-0.10) Sodium 140 mEq/L mEq/L (135-145) Potassium 3.8 mEq/L mEq/L (3.5-5.2) Chloride 102 mEq/L mEq/L (97-110) Carbon Dioxide 21 mEq/l L mEq/l (22-31) Anion Gap 17 mEq/L H mEq/L (8-16) BUN 11 mg/dL mg/dL (7-23) Creatinine 0.7 mg/dL mg/dL (0.6-1.0) Estimated GFR > 60 Glucose 96 mg/dL mg/dL (70-100) Calcium 9.3 mg/dL mg/dL (8.5-10.4) Total Bilirubin 1.3 mg/dL mg/dL (0.1-1.4) Conjugated Bilirubin 0.3 mg/dL mg/dL (0.0-0.5) Unconjugated Bilirubin 1.0 mg/dL mg/dL (0.0-1.1) AST 37 IU/L IU/L (14-46) ALT 50 IU/L IU/L (9-52) Alkaline Phosphatase 118 IU/L IU/L (38-126) Total Protein 8.4 g/dL H g/dL (6.3-8.2) Albumin 4.9 g/dL g/dL (3.5-5.0) Lipase 108 IU/L IU/L (23-300) Beta HCG, Qual NEGATIVE Medications Given: Discontinued Medications Diphenhydramine HCl (Benadryl Injection) 25 mg IVP EDNOW ONE Stop: 03/01/18 20:28 Last Admin: 03/01/18 20:36 Dose: 25 mg Haloperidol Lactate (Haldol Injection) 2.5 mg IVP EDNOW ONE Stop: 03/01/18 20:28 Last Admin: 03/01/18 20:37 Dose: 2.5 mg Sodium Chloride (Ns) 1,000 mls @ 0 mls/hr IV EDNOW ONE; Wide Open PRN Reason: Protocol Stop: 03/01/18 20:28 Last Admin: 03/01/18 20:35 Dose: 1,000 mls Sodium Chloride (Ns) 1,000 mls @ 0 mls/hr IV EDNOW ONE; Wide Open PRN Reason: Protocol Stop: 03/01/18 20:28 Last Admin: 03/01/18 20:35 Dose: 1,000 mls Departure - Departure Disposition: Home, Routine, Self-Care Clinical Impression: Nausea & vomiting Qualifiers: Vomiting type: unspecified Vomiting Intractability: non-intractable Qualified Code(s): R11.2 - Nausea with vomiting, unspecified Abdominal pain Qualifiers: Abdominal location: right upper quadrant Qualified Code(s): R10.11 - Right upper quadrant pain Condition: Good Instructions: Acute Nausea and Vomiting (ED), Acute Abdominal Pain (ED) Referrals: Magi Tomlinson MD [Medical Doctor] - As per Instructions
[2018-03-01] MEDS ORDERED: HALOPERIDOL LACT 5 MG/ML INJ IVP ONE (20:27)
[2018-03-01] MEDS ORDERED: NS 1,000 ML IV ONE ×2 (20:27)
[2018-03-01 20:33] LABS: PLATELET COUNT 318 10^3/uL (150-400)
[2018-03-01 22:41] VITALS: BP 133/64; PULSE 73; RESP 16; TEMP 97.9; O2SAT 96
== END 2018-03-01 22:39 | disposition home or self-care (01) ==
DX: R10.11 Right upper quadrant pain (principal); R11.2 Nausea with vomiting, unspecified; F17.200 Nicotine dependence, unspecified, uncomplicated; E86.9 Volume depletion, unspecified
CPT/HCPCS: 96374; J1200; J1630

== ENCOUNTER 2018-08-10 21:43 | Emergency (ER) | payer OTHER ==
--- NOTE | 2018-08-10 22:33 | EDPHY ---
H & P Stated Complaint: reaction to versed, sx today released at 1430 Source: Patient - Personal History LMP (Females 10-55): Now Current Tetanus/Diphtheria Vaccine: Yes - Medical/Surgical History Hx Asthma: No Hx Chronic Respiratory Disease: No Hx Diabetes: No Hx Cardiac Disease: No Hx Renal Disease: No Hx Cirrhosis: No Hx Alcoholism: No Hx HIV/AIDS: No Hx Splenectomy or Spleen Trauma: No Other PMH: pmh- anxiety, IVDA. Psh-tonsillectomy, R wrist. gastroperesis cyclical vomiting. L ankle sx 08/10/18 - Social History Smoking Status: Light smoker Time Seen by Provider: 08/10/18 22:33 HPI/ROS: HPI CHIEF COMPLAINT: Anxiety, possible reaction to medication HISTORY OF PRESENT ILLNESS: This is a 23-year-old female, she has a history of anxiety and PTSD, she presents emergency room stating that she is reacting to a medication she had today and thinks she is having a "paradoxical reaction to Versed". Patient states that she had left ankle surgery today and came out of surgery screaming and very anxious. She presents to the emergency room stating that she feels very anxious feels panicky, feels like she is having anxiety/ panic attack. Past Medical History: PTSD and anxiety, Previous Psychiatric Hospitization, IVDU, Narcotic Use. Past Surgical History: Left ankle surgery Social History: Denies daily use drugs alcohol tobacco Family History: Noncontributory ROS REVIEW OF SYSTEMS: 10 Systems were reviewed and negative with the exception of the elements mentioned in the history of present illness. Exam Constitutional anxious, nontoxic appearing, triage nursing summary reviewed, vital signs reviewed, awake/alert. Eyes normal conjunctivae and sclera, EOMI, PERRLA. HENT normal inspection, atraumatic, moist mucus membranes, no epistaxis, neck supple/ no meningismus, no raccoon eyes. Respiratory clear to auscultation bilaterally, normal breath sounds, no respiratory distress, no wheezing. Cardiovascular rate normal, regular rhythm, no murmur, no edema, distal pulses normal. Gastrointestinal soft, non-tender, no rebound, no guarding, normal bowel sounds, no distension, no pulsatile mass. Genitourinary no CVA tenderness. Musculoskeletal left lower extremity in splint, no midline vertebral tenderness , full range of motion, no calf swelling, no tenderness of extremities, no meningismus, good pulses, neurovascularly intact. Skin pink, warm, & dry, no rash, skin atraumatic. Neurologic awake, alert and oriented x 3, AAOx3, moves all 4 extremities equally, motor intact, sensory intact, CN II-XII intact, normal cerebellar, normal vision, normal speech. Psychiatric anxious, crying, hyperventilating Heme/Lymph/Immune no lymphadenopathy. Differential Diagnosis: Includes but is not limited to in a particular order acute anxiety attack, panic attack, electrolyte disturbance, dehydration, medication adverse reaction Medical Decision Making: Plan for this patient IV establishment IV fluid bolus , 50 mg IV Benadryl, 1 mg IV Ativan check basic electrolytes and re-evaluate. Re-evaluation: 1218AM: Re-examination at this time this patient is still very anxious despite 50 of Benadryl IV and 1 mg IV Ativan. Will re-dose with 1 mg Ativan and another 25 mg of Benadryl. Additionally 2nd L fluid. Will re-evaluate. Of note mom is at bedside requesting Haldol as "she is googling" medications to give her for her anxiety. However I declined to give her Haldol as she is on Zofran and can prolong her QT. Will re-evaluate after 2nd dose of Ativan. Additionally the boyfriend at bedside has given her a dose of Seroquel and 4 doses of Klonopin prior to arriving to the emergency room. 0112AM: Patient re-evaluated she is much more calm now after 2nd dose of Ativan. She is resting comfortably. However she is due for pain medicine to her left ankle pain recent surgery. I have ordered her 50 mcg IV fentanyl. 0232: Patient re-evaluated this time current heart rate 86, blood pressure 126/ 89, pulse ox 94% room air. Patient is resting comfortably. 0405: Plan was for discharge however the patient became very I rate and angry that she was being discharged. She is stating that we did not do anything for her despite giving her a large amount of medications here for anxiety including Ativan, Benadryl, fluids, Zyprexa, she also received fentanyl for pain due to recent left ankle surgery. Patient is now telling me as well as staff Mima MEADOWS, that she feels too unstable to go home. She would like to speak to mental health. She states she does not feel safe going home. She states she feels too anxious and is too "mentally unstable to go home" 0405: Patient is now screaming at medical staff, somewhat threatening. A due to her erratic behavior, her not feeling comfortable going home, states she has to mentally unstable like to speak to mental health I have placed her on M1 hold. She is here in the emergency room now acting rather aggressive, yelling, crying, anxious. Patient screaming and yelling. Patient extremely anxious. Patient is acting rather psychotic. Plan will be for IM Zyprexa 5 more mg. M1 hold. And will need mental health evaluation. 0436: Patient requesting pain medicine for her left foot/ankle. She was prescribed Percocet 5 mg for pain control at home. Will give her dose of this as well as ibuprofen. 0650: Patient signed over to Dr. Nicole at 7am. Patient medically cleared. Pending [facility]. (Zain Kaur) Constitutional: Initial Vital Signs Temperature (C) 36.6 C 08/10/18 21:50 Heart Rate 108 H 08/10/18 21:50 Respiratory Rate 28 H 08/10/18 21:50 Blood Pressure 105/69 08/10/18 21:50 O2 Sat (%) 92 08/10/18 21:50 O2 Delivery Mode Room Air Allergies/Adverse Reactions: naloxone Allergy (Mild, Verified 06/26/17 11:45) n/v Home Medications: Medication Instructions Recorded Zolpidem Tartrate [Ambien 5MG (*)] 10 mg PO HS #0 tab 05/12/17 clonazePAM [klonoPIN (*)] 1 mg PO TID #45 tab 05/12/17 Oxycodone HCl 08/10/18 Zofran 08/10/18 Medical Decision Making Other Provider: 0950: Patient has been evaluated by Daniel from [facility]. He has lifted the M1 hold and feels patient is safe for discharge. (Jose Luis Nicole) - Data Points Laboratory Results: Laboratory Results 08/10/18 22:15 08/10/18 22:15 08/11/18 08/10/18 08/10/18 05:15 22:15 22:15 WBC RBC Hgb Hct MCV MCH MCHC RDW Plt Count MPV Neut % (Auto) Lymph % (Auto) [place] % (Auto) Eos % (Auto) Baso % (Auto) Nucleat RBC Rel Count Absolute Neuts (auto) Absolute Lymphs (auto) Absolute Monos (auto) Absolute Eos (auto) Absolute Basos (auto) Absolute Nucleated RBC Immature Gran % Immature Gran # Sodium 141 mEq/L mEq/L (135-145) Potassium 4.1 mEq/L mEq/L (3.3-5.0) Chloride 107 mEq/L mEq/L (97-110) Carbon Dioxide 20 mEq/l L mEq/l (22-31) Anion Gap 14 mEq/L mEq/L (8-16) BUN 8 mg/dL mg/dL (7-23) Creatinine 0.6 mg/dL mg/dL (0.6-1.0) Estimated GFR > 60 Glucose 122 mg/dL H mg/dL (70-100) Calcium 9.7 mg/dL mg/dL (8.5-10.4) Urine Opiates Screen NEGATIVE (NEGATIVE) Urine Barbiturates NEGATIVE (NEGATIVE) Ur Phencyclidine Scrn NEGATIVE (NEGATIVE) Ur Amphetamine Screen NEGATIVE (NEGATIVE) U Benzodiazepines Scrn NEGATIVE (NEGATIVE) Urine Cocaine Screen NEGATIVE (NEGATIVE) U Marijuana (THC) Screen NON-NEGATIVE H (NEGATIVE) Ethyl Alcohol < 10 mg/dL mg/dL (0-10) 08/10/18 22:15 WBC 12.64 10^3/uL H 10^3/uL (3.80-9.50) RBC 5.38 10^6/uL H 10^6/uL (4.18-5.33) Hgb 15.3 g/dL g/dL (12.6-16.3) Hct 44.0 % % (38.0-47.0) MCV 81.8 fL fL (81.5-99.8) MCH 28.4 pg pg (27.9-34.1) MCHC 34.8 g/dL g/dL (32.4-36.7) RDW 14.1 % % (11.5-15.2) Plt Count 295 10^3/uL 10^3/uL (150-400) MPV 10.5 fL fL (8.7-11.7) Neut % (Auto) 84.5 % H % (39.3-74.2) Lymph % (Auto) 9.7 % L % (15.0-45.0) Camden % (Auto) 5.1 % % (4.5-13.0) Eos % (Auto) 0.0 % L % (0.6-7.6) Baso % (Auto) 0.2 % L % (0.3-1.7) Nucleat RBC Rel Count 0.0 % % (0.0-0.2) Absolute Neuts (auto) 10.69 10^3/uL H 10^3/uL (1.70-6.50) Absolute Lymphs (auto) 1.23 10^3/uL 10^3/uL (1.00-3.00) Absolute Monos (auto) 0.64 10^3/uL 10^3/uL (0.30-0.80) Absolute Eos (auto) 0.00 10^3/uL L 10^3/uL (0.03-0.40) Absolute Basos (auto) 0.02 10^3/uL 10^3/uL (0.02-0.10) Absolute Nucleated RBC 0.00 10^3/uL 10^3/uL (0-0.01) Immature Gran % 0.5 % % (0.0-1.1) Immature Gran # 0.06 10^3/uL 10^3/uL (0.00-0.10) Sodium Potassium Chloride Carbon Dioxide Anion Gap BUN Creatinine Estimated GFR Glucose Calcium Urine Opiates Screen Urine Barbiturates Ur Phencyclidine Scrn Ur Amphetamine Screen U Benzodiazepines Scrn Urine Cocaine Screen U Marijuana (THC) Screen Ethyl Alcohol Medications Given: Discontinued Medications Diphenhydramine HCl (Benadryl Injection) 50 mg IVP EDNOW ONE Stop: 08/10/18 22:38 Last Admin: 08/10/18 22:46 Dose: 50 mg Diphenhydramine HCl (Benadryl Injection) 25 mg IVP EDNOW ONE Stop: 08/11/18 00:17 Last Admin: 08/11/18 00:24 Dose: 25 mg Fentanyl (Sublimaze) 50 mcg IVP EDNOW ONE Stop: 08/11/18 01:11 Last Admin: 08/11/18 01:21 Dose: 50 mcg Sodium Chloride (Ns) 1,000 mls @ 0 mls/hr IV EDNOW ONE; Wide Open PRN Reason: Protocol Stop: 08/10/18 22:38 Last Admin: 08/10/18 22:44 Dose: 1,000 mls Sodium Chloride (Ns) 1,000 mls @ 0 mls/hr IV ONCE ONE PRN Reason: Wide Open Stop: 08/11/18 00:17 Last Admin: 08/11/18 00:22 Dose: 1,000 mls Ibuprofen (Motrin) 800 mg PO EDNOW ONE Stop: 08/11/18 04:36 Last Admin: 08/11/18 04:38 Dose: 800 mg Lorazepam (Ativan Injection) 1 mg IVP EDNOW ONE Stop: 08/10/18 22:38 Last Admin: 08/10/18 22:45 Dose: 1 mg Lorazepam (Ativan Injection) 1 mg IVP EDNOW ONE Stop: 08/10/18 23:23 Last Admin: 08/11/18 00:30 Dose: Not Given Lorazepam (Ativan Injection) 1 mg IVP EDNOW ONE Stop: 08/11/18 00:17 Last Admin: 08/11/18 00:23 Dose: 1 mg Nicotine (Nicoderm Cq) 21 mg TD EDNOW ONE Stop: 08/11/18 04:07 Last Admin: 08/11/18 04:08 Dose: 21 mg Olanzapine (Zyprexa Injection) 5 mg IM EDNOW ONE Stop: 08/11/18 01:39 Last Admin: 08/11/18 01:44 Dose: 5 mg Olanzapine (Zyprexa Injection) 5 mg IM EDNOW ONE Stop: 08/11/18 04:15 Last Admin: 08/11/18 04:20 Dose: 5 mg Oxycodone HCl (Oxycodone Ir) 5 mg PO EDNOW ONE Stop: 08/11/18 08:19 Last Admin: 08/11/18 08:22 Dose: 5 mg Oxycodone/Acetaminophen (Percocet 5/325) 1 tab PO EDNOW ONE Stop: 08/11/18 04:36 Last Admin: 08/11/18 04:38 Dose: 1 tab Departure - Departure Disposition: Home, Routine, Self-Care Clinical Impression: Anxiety, Psychosis Condition: Good Instructions: Anxiety (ED) Referrals: Clover Wray MD [Primary Care Provider] - As per Instructions
[2018-08-10] MEDS ORDERED: NS 1,000 ML IV ONE (22:37)
[2018-08-10] MEDS ORDERED: LORazepam 2 MG/ML INJ IVP ONE ×2 (22:37→23:22)
[2018-08-10 22:43] LABS: PLATELET COUNT 295 10^3/uL (150-400)
[2018-08-11] MEDS ORDERED: NS 1,000 ML IV ONE (00:16)
[2018-08-11] MEDS ORDERED: LORazepam 2 MG/ML INJ IVP ONE (00:16)
[2018-08-11] MEDS ORDERED: fentaNYL 100 MCG/2 ML INJ IVP ONE (01:10)
[2018-08-11] MEDS ORDERED: OLANZapine 10 MG/2 ML VIAL IM ONE ×2 (01:38→04:14)
[2018-08-11] MEDS ORDERED: NICOTINE 21 MG/24 HR PATCH TD ONE ×2 (04:05→04:06)
[2018-08-11] MEDS ORDERED: OXYCODONE/APAP 5/325 TAB PO ONE (04:35)
[2018-08-11] MEDS ORDERED: IBUPROFEN 800 MG TAB PO ONE (04:35)
[2018-08-11] MEDS ORDERED: oxyCODONE IR 5 MG TAB PO ONE (08:18)
[2018-08-11 10:19] VITALS: BP 156/85
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
--- NOTE | 2018-08-11 14:15 | ASMTTCLDSP ---
TLC Discharge Disposition Disposition: Answers: Discharge If Answers: Yes DISCHARGED: Patient/family given suicide hotline info & SAMHSA brochure? Disposition Notes: Notes: Pt stated commitment or ability to keep self safe, denied thoughts of self harm or harm to others. Pt expressed a desire to f/u with her scheduled therapy appointment on Wednesday at noon with Chantal Spears and schedule next appointment with psychiatrist, Jose Luis Francis MD. Pt was given local hotline information and SAMHSA brochure After an Attempt and encouraged to follow up with therapist appointment on Wednesday. Discharge Concerns/Recommendations: Notes: In consultation with [facility] ED physician, Jose Luis Nicole MD, Dr. Nicole concurred that pt does not appear to meet 27-65 criteria requiring psychiatric hospitalization as pt does not appear to be an imminent risk of harm to self/others/gravely disabled due to a mental illness condition. Dr. Nicole provided verbal order read back vacating M1 hold at 0950 hrs. Was patient given the Answers: Not applicable Inpatient Behavioral Health Prohibited Belongings List while in the ED? Psychiatrist vacating M1 Jose Luis Nicole MD Hold: Date and time M1 hold 08/11/2018 09:50 AM vacated (time format is hh:mm): Type of Hold: Answers: M1/72-hour Hold Hold initiated by: Answers: ED Physician Date Signed: 08/11/2018 01:53 PM Electronically Signed By:Daniel Piña
== END 2018-08-11 10:13 | disposition home or self-care (01) ==
DX: F41.9 Anxiety disorder, unspecified (principal); F29 Unspecified psychosis not due to a substance or known physiological condition; E86.9 Volume depletion, unspecified
CPT/HCPCS: 80305; 96374; G0480; J1200; J2060; J3010

== ENCOUNTER 2018-08-13 21:28 | Emergency (ER) | payer OTHER ==
[2018-08-13] MEDS ORDERED: NS 1,000 ML IV ONE ×2 (21:49→23:46)
--- NOTE | 2018-08-13 21:49 | EDPHY ---
H & P Stated Complaint: Dizziness Time Seen by Provider: 08/13/18 21:48 HPI/ROS: HPI CHIEF COMPLAINT: [ ] HISTORY OF PRESENT ILLNESS: [Need 4: Location, Duration, Severity, Quality, Context, Timing Modifying Factors, Associated S&S] Past Medical History: Past Surgical History: Social History: Family History: ROS REVIEW OF SYSTEMS: 10 Systems were reviewed and negative with the exception of the elements mentioned in the history of present illness. Exam Constitutional triage nursing summary reviewed, vital signs reviewed, awake/ alert. Eyes normal conjunctivae and sclera, EOMI, PERRLA. HENT normal inspection, atraumatic, moist mucus membranes, no epistaxis, neck supple/ no meningismus, no raccoon eyes. Respiratory clear to auscultation bilaterally, normal breath sounds, no respiratory distress, no wheezing. Cardiovascular rate normal, regular rhythm, no murmur, no edema, distal pulses normal. Gastrointestinal soft, non-tender, no rebound, no guarding, normal bowel sounds, no distension, no pulsatile mass. Genitourinary no CVA tenderness. Musculoskeletal no midline vertebral tenderness, full range of motion, no calf swelling, no tenderness of extremities, no meningismus, good pulses, neurovascularly intact. Skin pink, warm, & dry, no rash, skin atraumatic. Neurologic awake, alert and oriented x 3, AAOx3, moves all 4 extremities equally, motor intact, sensory intact, CN II-XII intact, normal cerebellar, normal vision, normal speech. Psychiatric normal mood/affect. Heme/Lymph/Immune no lymphadenopathy. Differential Diagnosis: Medical Decision Making: Re-evaluation: Source: Patient - Personal History LMP (Females 10-55): Now Current Tetanus Diphtheria and Acellular Pertussis (TDAP): Yes - Medical/Surgical History Hx Asthma: No Hx Chronic Respiratory Disease: No Hx Diabetes: No Hx Cardiac Disease: No Hx Renal Disease: No Hx Cirrhosis: No Hx Alcoholism: No Hx HIV/AIDS: No Hx Splenectomy or Spleen Trauma: No Other PMH: pmh- anxiety, IVDA. Psh-tonsillectomy, R wrist. gastroperesis cyclical vomiting. L ankle sx 08/10/18 - Social History Smoking Status: Light smoker Constitutional: Initial Vital Signs Temperature (C) 36.8 C 08/13/18 21:30 Heart Rate 110 H 08/13/18 21:30 Respiratory Rate 20 08/13/18 21:30 Blood Pressure 121/93 H 08/13/18 21:30 O2 Sat (%) 98 08/13/18 21:30 O2 Delivery Mode Room Air Allergies/Adverse Reactions: naloxone Allergy (Mild, Verified 06/26/17 11:45) n/v Home Medications: Medication Instructions Recorded Zolpidem Tartrate [Ambien 5MG (*)] 10 mg PO HS #0 tab 05/12/17 clonazePAM [klonoPIN (*)] 1 mg PO TID #45 tab 05/12/17 Oxycodone HCl 08/10/18 Zofran 08/10/18 Departure - Departure Condition: Good Referrals: NONE *PRIMARY CARE P,. [Primary Care Provider] - As per Instructions
[2018-08-13 22:01] LABS: PLATELET COUNT 234 10^3/uL (150-400)
[2018-08-13] MEDS ORDERED: PROMETHAZINE HCL 25 MG/ML INJ IVP ONE ×2 (22:08→22:35)
[2018-08-13] MEDS ORDERED: PROMETHAZINE HCL 25 MG/ML INJ ONE (22:33)
--- NOTE | 2018-08-13 22:33 | EDPHY ---
General - History Smoking Status: Light smoker Time Seen by Provider: 08/13/18 21:48 Narrative: CHIEF COMPLAINT: Dizzy, confusion, dehydrated, nausea vomiting HISTORY OF PRESENT ILLNESS: Patient presents by private vehicle with boyfriend and his parents at bedside. She complains of feeling dizzy, confused, and dehydrated because she started vomiting at 8:00 p.m. Tonight. The dizziness confusion has persisted since anesthesia Wednesday for left ankle surgery. This has been intermittently present. She has had no altered mentation. No seizure-like activity per family. She has no neck pain or stiffness, no headache no fever. She does have multiple episodes of vomiting this evening around 8:00 p.m.. This started after feeling nauseated earlier without vomiting. She took some CBD oils by mouth and vomited following this. She has had several episodes of vomiting and "can't keep anything down."She states she tolerated her pain medication at 3:00 p.m. But could not tolerate the evening dose. She has no chest pain. No shortness of breath. Her surgical site pain has been tolerable with prescribed OxyContin. No other associated complaints or modifying factors REVIEW OF SYSTEMS: 10 systems were reviewed and negative with the exception of the elements mentioned in the history of present illness. PCP: Dr. Wray SPECIALISTS: Dr. Villavicencio, Orthopedics Dr. Francis, Psychiatry PAST MEDICAL HISTORY: Anxiety, previous IV drug abuse, gastroparesis comes vomiting, orthopedic injure PAST SURGICAL HISTORY: Left ankle open reduction internal fixation, right wrist surgery remotely SOCIAL HISTORY: Lives independently with her significant other. FAMILY HISTORY: Noncontributory EXAMINATION: General Appearance: Alert, no distress Head: normocephalic, atraumatic Eyes: Pupils equal and round, no conjunctival pallor or injection ENT, Mouth: Mucous membranes moist. EOM symmetric without any nystagmus or dysconjugate gaze. Neck: Normal inspection. Midline trachea. No meningismus or rigidity. Painless range in all planes. Respiratory: Lungs are clear to auscultation Cardiovascular: Tachycardic rate. Regular rhythm. No murmur. Gastrointestinal: Abdomen is soft and nontender Neurological: GCS 15. Alert to person, place and time. Normal finger-to- nose. Excellent strength of the upper extremities right lower extremity. Normal mentation. Skin: Warm and dry, no rash Extremities: Left lower extremity in posterior splint with stirrup. I did not remove this. She has excellent perfusion left toes that are easily visualized. Symmetric sensation of the toes bilaterally. No tenderness of the right lower extremity the upper extremities. Psychiatric: Mood and affect normal DIFFERENTIAL DIAGNOSES: Including but not limited to cervical vomiting, THC gastritis, post anesthesia nausea vomiting, vertigo, dehydration, near-syncope MDM: 10:05 p.m. Nausea, vomiting clinical dehydration. The patient is postop day 3 from a left ankle open reduction internal fixation. She is also here 2 days ago for possible to anesthesia. She was ultimately placed on an M1 hold on Wednesday night and then cleared mental evaluation. I do feel that part of her difficulty today's due to multiple medications over the few days with an adequate p.o. Intake. She has a normal, nonfocal neuro examination with no altered mentation. Her vital signs are within normal limits. I have ordered IV fluid. Laboratory studies were ordered prior to my examination. 11:20 p.m. CBC and Chemistry are within normal limits. She received 1.5 L IV fluid. She received promethazine 12.5 and 2 separate dosing is. Her vital signs remained within normal limits. She is awake alert no acute distress. Continue with IV fluid resuscitation. I have also ordered IV Pepcid as I suspect there may be component of cervical vomiting/gastritis. 11:40 p.m. Patient re-evaluated. She still feeling nauseated but she has no active vomiting. Abdominal exam remains benign. No chest pain. She is mildly tachycardic, and EKG obtained reveals normal intervals. 12:20 a.m. Patient re-evaluated. She has received p.o. OxyContin without any vomiting. She is receiving her 3rd L IV fluid at this time. After further discussion, the patient is more forthcoming and admits that she has ingested multiple marijuana edibles yesterday and into the evening. Both she and her significant other at bedside feel this is contributed. She is likely cyclical vomiting on top of previous sedating medications, pain medications and acute pain to her ankle. I do feel we have a reason for her symptoms as well as for mild tachycardia. I will continue IV fluid resuscitation re-evaluate. 1:20 a.m. Patient re-evaluated. She is feeling much better. She remains mildly at times , which I think is mainly due to pain as we have not yet controlled with pain adequately. I have ordered a dose of morphine and will finish 3rd L IV fluid 2:00 a.m. Patient re-evaluated. She is feeling better. She is less nauseated. We discussed discharge home and strict cessation from THC for 6 weeks. We discussed resuming her OxyContin prescribed by her surgeon. We discussed nausea medications that have been provided from us. We discussed ED precautions including return of vomiting, intractable pain, chest pain, shortness of breath or altered mentation. At this time she is awake and alert. She is in no acute distress. She has not vomited during her stay here. She has no altered mentation or cephalopathy. No meningismus or rigidity. She is discharged in stable condition in her boyfriend will drive her home. EKG interpretation: Dr. Kaur SUPERVISION: Patient was independently examined, but I discussed the case with my secondary supervising physician Dr. Kaur head CONSULTATION: None (Cliff Brantley) - Objective Vital Signs: Initial Vital Signs Temperature (C) 98.2 F 08/13/18 21:30 Heart Rate 110 H 08/13/18 21:30 Respiratory Rate 20 08/13/18 21:30 Blood Pressure 121/93 H 08/13/18 21:30 O2 Sat (%) 98 08/13/18 21:30 O2 Delivery Mode Room Air O2 (L/minute) 2 Allergies/Adverse Reactions: naloxone Allergy (Mild, Verified 06/26/17 11:45) n/v Home Medications: Medication Instructions Recorded Zolpidem Tartrate [Ambien 5MG (*)] 10 mg PO HS #0 tab 05/12/17 clonazePAM [klonoPIN (*)] 1 mg PO TID #45 tab 05/12/17 Oxycodone HCl 08/10/18 Zofran 08/10/18 Laboratory Results: Laboratory Results 08/13/18 21:47 08/13/18 21:47 Medications Given: Discontinued Medications Famotidine (Pepcid) 20 mg IVP EDNOW ONE Stop: 08/13/18 23:17 Last Admin: 08/14/18 00:04 Dose: 20 mg Sodium Chloride (Ns) 1,000 mls @ 0 mls/hr IV EDNOW ONE; Wide Open PRN Reason: Protocol Stop: 08/13/18 21:50 Last Admin: 08/13/18 21:54 Dose: 1,000 mls Sodium Chloride (Ns) 1,000 mls @ 0 mls/hr IV EDNOW ONE; Wide Open PRN Reason: Protocol Stop: 08/13/18 22:35 Last Admin: 08/14/18 00:04 Dose: 1,000 mls Sodium Chloride (Ns) 1,000 mls @ 0 mls/hr IV EDNOW ONE; Wide Open PRN Reason: Protocol Stop: 08/13/18 23:47 Last Admin: 08/14/18 00:38 Dose: 1,000 mls Morphine Sulfate (Morphine) 4 mg IVP EDNOW ONE Stop: 08/13/18 22:10 Last Admin: 08/13/18 22:14 Dose: 4 mg Morphine Sulfate (Morphine) 4 mg IVP EDNOW ONE Stop: 08/14/18 01:22 Last Admin: 08/14/18 00:15 Dose: 4 mg Ondansetron HCl (Zofran Odt 4 Mg Prepack#2) 1 btl TAKEHOME EDNOW ONE Stop: 08/14/18 01:09 Last Admin: 08/14/18 01:43 Dose: 1 btl Oxycodone HCl (Oxycontin) 10 mg PO ONCE ONE Stop: 08/13/18 22:37 Last Admin: 08/14/18 00:04 Dose: 10 mg Promethazine HCl (Phenergan) 12.5 mg IVP ONCE ONE Stop: 08/13/18 22:09 Last Admin: 08/13/18 22:13 Dose: 12.5 mg Promethazine HCl (Phenergan) 12.5 mg IVP ONCE ONE Stop: 08/13/18 22:36 Last Admin: 08/13/18 22:38 Dose: 12.5 mg Promethazine HCl (Phenergan 25 Mg Prepack #4) 1 btl TAKEHOME EDNOW ONE Stop: 08/14/18 01:09 Last Admin: 08/14/18 01:43 Dose: 1 btl Departure - Departure Disposition: Home, Routine, Self-Care Clinical Impression: Cannabinoid hyperemesis syndrome, Volume depletion, Postoperative pain of extremity Gastritis Qualifiers: Gastritis type: other gastritis Chronicity: acute Gastritis bleeding: without bleeding Qualified Code(s): K29.00 - Acute gastritis without bleeding Condition: Good Instructions: Promethazine (By mouth), Ondansetron (By mouth), Gastritis (ED), Pain Management (ED), Cyclic Vomiting Syndrome (ED) Additional Instructions: 1. Nausea medications as provided and prescribed as needed including promethazine and Zofran 2. [id number] Pepcid, 20 mg twice daily for 7-14 days 3. [id number] Mylanta as directed on the bottle as needed 4. Continue your previous pain medication as prescribed as needed. Do not mix with marijuana alcohol 5. Strongly recommend that you discontinue all sources of THC immediately and for 6 weeks duration 6. Follow up with primary care physician to discuss ongoing care and GI referral if needed 7. Additionally your Liver Enzymes were slightly elevated today in the ER, please have them re-checked by your Primary Care doctor. Referrals: Weston Villavicencio MD [Medical Doctor] - As per Instructions Clover Wray MD [Medical Doctor] - As per Instructions
[2018-08-13] MEDS ORDERED: FAMOTIDINE 20 MG/2 ML SDV IVP ONE (23:16)
[2018-08-14] MEDS ORDERED: oxyCODONE IR 5 MG TAB ONE (00:01)
[2018-08-14] MEDS: NS 1,000 ML IV ONE ×2 (00:03→00:04)
[2018-08-14] MEDS ORDERED: ONDANSETRON 4MG PREPACK#2 BTL TAKEHOME ONE (01:08)
[2018-08-14] MEDS ORDERED: PROMETHAZINE 25 MG PREPACK #4 BTL TAKEHOME ONE (01:08)
[2018-08-14 05:14] VITALS: BP 111/79
--- NOTE | 2018-08-14 10:22 | CPEKG ---
Test Reason : OPEN Blood Pressure : / mmHG Vent. Rate : 119 BPM Atrial Rate : 119 BPM P-R Int : 139 ms QRS Dur : 085 ms QT Int : 323 ms P-R-T Axes : 050 084 023 degrees QTc Int : 455 ms Sinus tachycardia Confirmed by Jay Oropeza ([id number]) on 08/14/2018 10:22:18 AM Referred By: Confirmed By:Jay Oropeza
== END 2018-08-14 05:13 | disposition home or self-care (01) ==
LOC: EDUNIT#
DX: K29.00 Acute gastritis without bleeding (principal); G89.18 Other acute postprocedural pain; F17.200 Nicotine dependence, unspecified, uncomplicated; E86.9 Volume depletion, unspecified
CPT/HCPCS: 96374; J2270; J2550